=== PATIENT | female | born 1985 | race Caucasian/White ===

== ENCOUNTER 2018-01-23 13:53 | Emergency (ER) | payer BC, MEDICAID ==
[2018-01-23] MEDS ORDERED: Ondansetron 4 MG Tab.DIS PO ONE (13:54)
[2018-01-23 14:05] VITALS: BP 121/82
[2018-01-23] MEDS: Scopolamine 1.5 MG Transdermal Patch TRDERM PRN (14:36)
--- NOTE | 2018-01-23 14:37 | EDM.PDOC ---
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 with OB about 2 weeks ago. Has upcoming appt with maternal/ medicine. States that she is taking Progesterone vaginal suppositories (due to hx of miscarriages.) Denies any pelvic cramping or vaginal bleeding. Denies any symptoms or UTI but states the progesterone irritates vaginal area so it would be hard to tell if she is having UTI symptoms. Has not vomited any today. 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 (see below) (none) Bilateral Pain Score (Numeric/FACES): 3 - Related Data Allergies Allergy/AdvReac Type Severity Reaction Status Date / Time ceftriaxone sodium Allergy Hives Verified 01/23/18 13:56 [From Rocephin] latex Allergy Hives Verified 01/23/18 13:56 nitrofurantoin Allergy Hives Verified 01/23/18 13:56 [From Macrobid] nitrofurantoin Allergy Hives Verified 01/23/18 13:56 macrocrystalline [From Macrobid] Penicillins Allergy Hives Verified 01/23/18 13:56 Sulfa (Sulfonamide Allergy Hives Verified 01/23/18 13:56 Antibiotics) vancomycin Allergy Hives Verified 01/23/18 13:56 Home Meds: Home Meds ARIPiprazole [Abilify] 10 mg PO DAILY 03/10/15 [History] Methylphenidate [Concerta] 27 mg PO DAILY 03/10/15 [History] Albuterol [Ventolin HFA] 1 inh INH Q6H PRN 01/23/18 [History] Citalopram [Citalopram HBr] 20 mg PO DAILY 01/23/18 [History] PNV95/Ferrous Fumarate/FA [ Tablet] 1 tab PO DAILY 01/23/18 [History] lamoTRIgine [Lamotrigine] 25 mg PO DAILY 01/23/18 [History] Past Medical History Cardiovascular History: Reports: Cardiomyopathy, Hypertension Other Cardiovascular History: enlarged atrium, tachycardia Respiratory History: Reports: Asthma Gastrointestinal History: Reports: Hemorrhoids, Irritable Bowel Syndrome Genitourinary History: Reports: Acute Renal Failure 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: , Spontaneous Musculoskeletal History: Reports: Fracture Other Musculoskeletal History: tibia, ankle, wrist Psychiatric History: Reports: Addiction, Mood Swings Dermatologic History: Reports: Cellulitis - Past Surgical History Female Surgical History: Reports: Breast Biopsy, Breast Reconstruction, D&C - History Comment History Comment: Recurrent Staph and Strep infections Social & Family History - Family History Family Medical History: Noncontributory - Tobacco Use Smoking Status *Q: Former Smoker Used Tobacco, but Quit: Yes Month/Year Tobacco Last Used: 10/10 - Caffeine Use Caffeine Use: Reports: Soda - Recreational Drug Use Recreational Drug Use: No ED ROS GENERAL - Review of Systems Review Of Systems: See Below Constitutional: Reports: Malaise, Fatigue HEENT: Reports: No Symptoms Respiratory: Reports: No Symptoms Cardiovascular: Reports: No Symptoms Endocrine: Reports: No Symptoms GI/Abdominal: Reports: Constipation, Nausea, Vomiting : Reports: No Symptoms Musculoskeletal: Reports: No Symptoms Skin: Reports: No Symptoms Neurological: Reports: No Symptoms Psychiatric: Reports: No Symptoms Hematologic/Lymphatic: Reports: No Symptoms Immunologic: Reports: No Symptoms ED EXAM, GI/ABD - Physical Exam Exam: See Below Exam Limited By: No Limitations General Appearance: Alert, WD/WN, No Apparent Distress Ears: Normal External Exam, Normal Canal, Hearing Grossly Normal Nose: Normal Inspection, Normal Mucosa, No Blood Throat/Mouth: Normal Inspection, Normal Lips, Normal Teeth, Normal Oropharynx, Normal Voice Head: Atraumatic, Normocephalic Neck: Normal Inspection, Supple, Full Range of Motion Respiratory/Chest: No Respiratory Distress, Lungs Clear, Normal Breath Sounds, No Accessory Muscle Use, Chest Non-Tender Cardiovascular: Normal Peripheral Pulses, Regular Rate, Rhythm, No Edema, No JVD GI/Abdominal Exam: Normal Bowel Sounds, Soft, Non-Tender, No Organomegaly, No Distention, No Abnormal Bruit, No Mass, Pelvis Stable (Female) Exam: Deferred Rectal (Female) Exam: Deferred Extremities: Normal Inspection, Normal Range of Motion, Non-Tender, No Pedal Edema Neurological: Alert, Oriented, CN II-XII Intact, Normal Cognition, Normal Gait, No Motor/Sensory Deficits Psychiatric: Normal Affect, Normal Mood Skin Exam: Warm, Dry, Intact, Normal Color, No Rash, Other (tattoos on arms) Course - Vital Signs Last Recorded V/S: Last Vital Signs Temp 36.8 C 01/23/18 14:00 Pulse 100 01/23/18 14:00 Resp 20 01/23/18 14:00 BP 121/82 01/23/18 14:00 Pulse Ox 99 01/23/18 14:00 - Orders/Labs/Meds Orders: Active Orders 24 hr Category Date Time Status CBC WITH AUTO DIFF [HEME] Stat Lab 01/23/18 14:08 Ordered CMP [COMPREHENSIVE METABOLIC PN,CMP] [CHEM] Stat Lab 01/23/18 14:08 Ordered HCG QUALITATIVE,URINE [URCHEM] Stat Lab 01/23/18 14:08 Ordered UA W/MICROSCOPIC [URIN] Stat Lab 01/23/18 14:08 Ordered Departure - Departure Time of Disposition: 15:14 Disposition: Home, Self-Care 01 Condition: Good Clinical Impression: Nausea and vomiting during - Discharge Information Instructions: Morning Sickness, [id number], Nausea and Vomiting, Adult Additional Instructions: Take medication as directed. Follow up with OB/ ASSISTANT PROFESSOR OF NURSING and Maternal/ medicine at [facility]. [place] diet. Return if symptoms worsen. - Problem List Review Problem List Initiated/Reviewed/Updated: Yes - My Orders Last 24 Hours: My Active Orders 01/23/18 14:08 CBC WITH AUTO DIFF [HEME] Stat CMP [COMPREHENSIVE METABOLIC PN,CMP] [CHEM] Stat HCG QUALITATIVE,URINE [URCHEM] Stat UA W/MICROSCOPIC [URIN] Stat - Assessment/Plan Last 24 Hours: My Active Orders 01/23/18 14:08 CBC WITH AUTO DIFF [HEME] Stat CMP [COMPREHENSIVE METABOLIC PN,CMP] [CHEM] Stat HCG QUALITATIVE,URINE [URCHEM] Stat UA W/MICROSCOPIC [URIN] Stat Assessment:: Nausea/ vomiting during . No vomiting while in ED. Plan: Follow up with OB/ ASSISTANT PROFESSOR OF NURSING and Maternal medicine at next appt or sooner if vomiting persists. [place] diet. Take medication as directed. Return if symptoms worsen.
[2018-01-23 14:39] LABS: CHLORIDE,CL 102 mEq/L (98-106); SODIUM,NA 137 mEq/L (136-145)
[2018-01-23] MEDS: Ondansetron 4 MG/2 ML SDV IVPUSH ONE (15:06)
[2018-01-23] MEDS: Sodium Chloride 0.9% 500 ML IV SCH (15:17)
[2018-01-23] MEDS: Take Home: Ondansetron 4 MG Tab.DIS, 2 Tab Pack PO ONE (15:18)
== END 2018-01-23 16:03 | disposition home or self-care (01) ==
LOC: CC.ED 13:53
DX: O21.9 Vomiting of pregnancy, unspecified (principal); Z88.8 Allergy status to other drugs, medicaments and biological substances; Z91.040 Latex allergy status; Z88.2 Allergy status to sulfonamides; Z88.0 Allergy status to penicillin; Z88.1 Allergy status to other antibiotic agents; Z87.891 Personal history of nicotine dependence; Z3A.10 10 weeks gestation of pregnancy
CPT/HCPCS: 36415; 80053; 81001; 81025; 85025; 96374; 99284; A9270-GY; J2405; J7040